=== PATIENT | male | born 1940 | race Caucasian/White ===

== ENCOUNTER 2021-03-15 18:35 | Inpatient (IN) | payer OTHER ==
[~2021-03-15] VITALS: Ht 172.7 cm; Wt 79.3 kg
[~2021-03-15 18:35] MED LIST: ALBUAER3 IN; ASCO10003 PO; AZIT500T66 PO; CHOL1CAP47 PO; GABA100C9 PO; LEV50T PO; ZINC220T6 PO
[2021-03-15 21:14] LABS: Basophils # (auto) 0 10 ^3/uL (0-0.2); Basophils % (auto) 0.7 % (0.0-2.0); Eosinophils # (auto) 0 10 ^3/uL (0-0.8); Eosinophils % (auto) 0.1 % (0.0-7.0); Hematocrit 37.6 % (41.0-53.0); Hemoglobin 13.1 g/dL (13.5-17.5); Lymphocytes # (auto) 0.3 10 ^3/uL (0.4-5.4); Lymphocytes % (auto) 8.2 % (10.0-50.0); Mean Corpuscular Hemoglobin 30.8 pg (28.0-32.0); Mean Corpuscular Hgb Conc. 34.8 g/dL (32.0-36.0); Mean Corpuscular Volume 88.6 fL (80.0-100.0); Monocytes # (auto) 0.6 10 ^3/uL (0-1.3); Monocytes % (auto) 14.3 % (0.0-12.0); Neutrophils # (auto) 3.1 10 ^3/uL (1.6-8.6); Neutrophils % (auto) 76.7 % (37.0-80.0); Nucleated Red Blood Cells % 0.2 %; Red Blood Cells 4.24 10^6/uL (4.5-5.90); Red Cell Distribution Width 13.7 % (11.8-14.3); White Blood Cell 4.1 10^3/uL (4.4-10.8)
[2021-03-15 21:15] LABS: INR 0.99 (0.9-1.15); Partial Thromboplastin Time 33.7 sec (23.0-31.2)
[2021-03-15] MEDS ORDERED: ACETAMINOPHEN 325 MG TAB PO ONE (21:15)
[2021-03-15 21:17] LABS: Calcium 7.5 mg/dL (8.5-10.1); Potassium 4.1 mmol/L (3.5-5.1)
[2021-03-15 21:19] LABS: Urine Bacteria NONE SEEN /hpf (None Seen); Urine Blood Negative /uL (Negative); Urine Specific Gravity 1.017 (1.001-1.035); Urine WBC 1 /hpf (0 - 3)
[2021-03-15] MEDS ORDERED: PIPERACILLIN-TAZO 4.5GM 100 ML IV ONE (23:15)
[2021-03-16] MEDS ORDERED: MORPHINE SULFATE INJECTION 2 MG/ML SYRG IV PRN (02:30)
[2021-03-16] MEDS ORDERED: NITROGLYCERIN 0.4 MG SL TAB SL PRN (02:30)
[2021-03-16] MEDS ORDERED: ONDANSETRON HCL 4 MG/2 ML VIAL IV PRN (02:30)
[2021-03-16] MEDS ORDERED: ACETAMINOPHEN 500 MG TAB PO PRN (02:30)
[2021-03-16] MEDS ORDERED: HYDROcodone-ACET 5/325MG TAB PO PRN (02:30)
[2021-03-16] MEDS ORDERED: DOCUSATE SOD 100 MG CAP PO PRN (02:30)
[2021-03-16 02:51] VITALS: BP 97/55
[2021-03-16] MEDS: SODIUM CHLORIDE 0.9% 1,000 ML IV SCH ×2 (03:04→19:10)
[2021-03-16] MEDS: SODIUM CHLOR 0.9% PF (SALINE LOCK) 10ML VIAL/SYR IV SCH ×3 (05:51→21:45)
[2021-03-16 06:28] VITALS: BP 125/49
[2021-03-16] MEDS: LEVOTHYROXINE SODIUM 50 MCG TAB PO SCH (06:31)
[2021-03-16 08:38] LABS: Albumin 2.8 g/dL (3.4-5.0); BUN/Creatinine Ratio 21.4; Potassium 3.8 mmol/L (3.5-5.1)
[2021-03-16 08:45] LABS: Basophils # (auto) 0 10 ^3/uL (0-0.2); Basophils % (auto) 0.5 % (0.0-2.0); Eosinophils # (auto) 0 10 ^3/uL (0-0.8); Eosinophils % (auto) 0.3 % (0.0-7.0); Hematocrit 40.4 % (41.0-53.0); Hemoglobin 13.9 g/dL (13.5-17.5); Mean Corpuscular Hemoglobin 30.3 pg (28.0-32.0); Mean Corpuscular Hgb Conc. 34.4 g/dL (32.0-36.0); Neutrophils # (auto) 1.7 10 ^3/uL (1.6-8.6); Nucleated Red Blood Cells % 0.6 %; Red Blood Cells 4.59 10^6/uL (4.5-5.90); Red Cell Distribution Width 14.1 % (11.8-14.3)
[2021-03-16 08:46] LABS: Bilirubin, Total 0.6 mg/dL (0.2-1.0); Total Protein 6.2 g/dL (6.4-8.2)
[2021-03-16 08:49] LABS: Lymphocytes # (auto) 0.8 10 ^3/uL (0.4-5.4); Lymphocytes % (auto) 24.2 % (10.0-50.0); Monocytes # (auto) 0.6 10 ^3/uL (0-1.3)
[2021-03-16] MEDS: BUDESONIDE (INHALATION) 180 MCG IH IN SCH ×2 (10:00→22:00)
[2021-03-16] MEDS: ZINC SULFATE 220mg CAP or TAB PO SCH (11:53)
[2021-03-16] MEDS: MULTIPLE VITAMIN TAB PO SCH (11:53)
[2021-03-16] MEDS: CHOLECALCIFEROL (VITD3) 2,000 UNIT CAP/TAB PO SCH (11:53)
[2021-03-16] MEDS: ASCORBIC ACID 1,000 MG TAB PO SCH (11:53)
[2021-03-16] MEDS: DOXYCYCLINE 100MG/250ML 250 ML IV SCH ×2 (11:54→21:46)
[2021-03-16] MEDS: FAMOTIDINE 20 MG TAB PO SCH ×2 (11:54→21:46)
[2021-03-16] MEDS: DexAMETHasone SOD PHOS 10MG/1ML VIAL INJ IV SCH (11:55)
[2021-03-16] MEDS: ENOXAPARIN SOD 40 MG/0.4 ML SYRINGE SC SCH (11:55)
[2021-03-16] MEDS ORDERED: REMDESIVIR 200 MG in NS 210ml LOADING DOSE ADULT IV ONE (15:30)
[2021-03-16] MEDS ORDERED: REMDESIVIR PER PHARMACY 0 ML IV SCH (15:30)
[2021-03-16 21:03] VITALS: BP 122/68
[2021-03-17 05:25] VITALS: BP 121/60
[2021-03-17] MEDS: SODIUM CHLOR 0.9% PF (SALINE LOCK) 10ML VIAL/SYR IV SCH ×3 (05:48→21:59)
[2021-03-17] MEDS: LEVOTHYROXINE SODIUM 50 MCG TAB PO SCH (06:17)
[2021-03-17 07:51] LABS: Albumin 2.6 g/dL (3.4-5.0); Potassium 4.1 mmol/L (3.5-5.1)
[2021-03-17 07:54] LABS: Bilirubin, Total 0.5 mg/dL (0.2-1.0); Total Protein 5.9 g/dL (6.4-8.2)
[2021-03-17 08:49] VITALS: BP 114/53
[2021-03-17] MEDS: ASCORBIC ACID 1,000 MG TAB PO SCH (09:43)
[2021-03-17] MEDS: MULTIPLE VITAMIN TAB PO SCH (09:43)
[2021-03-17] MEDS: FAMOTIDINE 20 MG TAB PO SCH ×2 (09:43→21:59)
[2021-03-17] MEDS: DOXYCYCLINE 100MG/250ML 250 ML IV SCH ×2 (09:43→21:59)
[2021-03-17] MEDS: DexAMETHasone SOD PHOS 10MG/1ML VIAL INJ IV SCH (09:43)
[2021-03-17] MEDS: ZINC SULFATE 220mg CAP or TAB PO SCH (09:43)
[2021-03-17] MEDS: CHOLECALCIFEROL (VITD3) 2,000 UNIT CAP/TAB PO SCH (09:44)
[2021-03-17] MEDS: ENOXAPARIN SOD 40 MG/0.4 ML SYRINGE SC SCH (09:44)
[2021-03-17] MEDS: ALBUTEROL SULF HFA 90MCG INH 200DOSE IN PRN ×2 (09:52→19:02)
[2021-03-17] MEDS: BUDESONIDE (INHALATION) 180 MCG IH IN SCH ×2 (09:53→19:02)
[2021-03-17] MEDS: SODIUM CHLORIDE 0.9% 1,000 ML IV SCH (11:55)
[2021-03-17] MEDS ORDERED: IOHEXOL 350 MG/ML 100ML IJ ONE (12:00)
[2021-03-17 12:50] VITALS: BP 122/74
[2021-03-17] MEDS: REMDESIVIR 100mg 100 MG in SODIUM CHL 0.9% 230 ML IV SCH (15:52)
[2021-03-17 17:00] VITALS: BP 134/80
[2021-03-18 00:30] VITALS: BP 121/71
[2021-03-18] MEDS: SODIUM CHLORIDE 0.9% 1,000 ML IV SCH (04:30)
[2021-03-18 06:00] VITALS: BP 123/60
[2021-03-18] MEDS: SODIUM CHLOR 0.9% PF (SALINE LOCK) 10ML VIAL/SYR IV SCH ×3 (06:17→23:18)
[2021-03-18] MEDS: LEVOTHYROXINE SODIUM 50 MCG TAB PO SCH (06:18)
[2021-03-18 07:09] LABS: Albumin 2.8 g/dL (3.4-5.0); BUN/Creatinine Ratio 21.2; Calcium 8.3 mg/dL (8.5-10.1)
[2021-03-18 07:12] LABS: Bilirubin, Total 0.6 mg/dL (0.2-1.0); Total Protein 6.4 g/dL (6.4-8.2)
[2021-03-18] MEDS: ALBUTEROL SULF HFA 90MCG INH 200DOSE IN PRN (07:54)
[2021-03-18] MEDS: BUDESONIDE (INHALATION) 180 MCG IH IN SCH ×2 (07:55→23:20)
[2021-03-18] MEDS: MULTIPLE VITAMIN TAB PO SCH (09:01)
[2021-03-18] MEDS: FAMOTIDINE 20 MG TAB PO SCH ×2 (09:01→23:18)
[2021-03-18] MEDS: ASCORBIC ACID 1,000 MG TAB PO SCH (09:01)
[2021-03-18] MEDS: DexAMETHasone SOD PHOS 10MG/1ML VIAL INJ IV SCH (09:01)
[2021-03-18] MEDS: ZINC SULFATE 220mg CAP or TAB PO SCH (09:01)
[2021-03-18] MEDS: DOXYCYCLINE 100MG/250ML 250 ML IV SCH ×2 (09:01→23:18)
[2021-03-18] MEDS: CHOLECALCIFEROL (VITD3) 2,000 UNIT CAP/TAB PO SCH (09:01)
[2021-03-18] MEDS: ENOXAPARIN SOD 40 MG/0.4 ML SYRINGE SC SCH (09:02)
[2021-03-18] MEDS: REMDESIVIR 100mg 100 MG in SODIUM CHL 0.9% 230 ML IV SCH (13:56)
[2021-03-18 14:00] VITALS: BP 113/68
[2021-03-18] MEDS ORDERED: TEMAZEPAM 15 MG CAP PO PRN (17:15)
[2021-03-18 17:18] VITALS: BP 120/69
[2021-03-18 22:25] VITALS: BP 140/70
[2021-03-18] MEDS: TEMAZEPAM 15 MG CAP PO PRN (23:18)
[2021-03-19 05:09] VITALS: BP 120/62
[2021-03-19 05:33] VITALS: BP 120/62
[2021-03-19] MEDS: SODIUM CHLORIDE 0.9% 1,000 ML IV SCH ×2 (06:08→10:55)
[2021-03-19] MEDS: SODIUM CHLOR 0.9% PF (SALINE LOCK) 10ML VIAL/SYR IV SCH ×3 (06:08→21:18)
[2021-03-19] MEDS: LEVOTHYROXINE SODIUM 50 MCG TAB PO SCH (06:08)
[2021-03-19 07:08] LABS: Hematocrit 37.8 % (41.0-53.0); Hemoglobin 13.4 g/dL (13.5-17.5); Mean Corpuscular Hemoglobin 31.2 pg (28.0-32.0); Mean Corpuscular Hgb Conc. 35.6 g/dL (32.0-36.0); Mean Corpuscular Volume 87.6 fL (80.0-100.0); Red Blood Cells 4.31 10^6/uL (4.5-5.90); Red Cell Distribution Width 14.2 % (11.8-14.3); White Blood Cell 4.8 10^3/uL (4.4-10.8)
[2021-03-19 07:20] LABS: Basophils % (manual) 0 (0.0-2.0); Blast Cells 0; Eosinophils % (manual) 0 (0-7); Metamyelocytes % 0; Myelocytes % 0; Promyelocytes % 0; Reactive Lymphocytes 0
[2021-03-19 07:25] LABS: Potassium 4.2 mmol/L (3.5-5.1)
[2021-03-19 07:36] LABS: Albumin 2.6 g/dL (3.4-5.0); BUN/Creatinine Ratio 27.5; Bilirubin, Total 0.6 mg/dL (0.2-1.0); Calcium 8.3 mg/dL (8.5-10.1); Total Protein 5.8 g/dL (6.4-8.2)
[2021-03-19 07:58] LABS: Band Neutrophils % (manual) 1; Lymphocytes % (manual) 14 (10.0-50.0); Monocytes % (manual) 11 (0-12)
[2021-03-19 09:00] VITALS: BP 98/56
[2021-03-19] MEDS: ALBUTEROL SULF HFA 90MCG INH 200DOSE IN PRN (09:40)
[2021-03-19] MEDS: BUDESONIDE (INHALATION) 180 MCG IH IN SCH ×2 (09:42→18:56)
[2021-03-19] MEDS: CHOLECALCIFEROL (VITD3) 2,000 UNIT CAP/TAB PO SCH (10:53)
[2021-03-19] MEDS: ENOXAPARIN SOD 40 MG/0.4 ML SYRINGE SC SCH (10:53)
[2021-03-19] MEDS: ZINC SULFATE 220mg CAP or TAB PO SCH (10:53)
[2021-03-19] MEDS: DexAMETHasone SOD PHOS 10MG/1ML VIAL INJ IV SCH (10:54)
[2021-03-19] MEDS: MULTIPLE VITAMIN TAB PO SCH (10:54)
[2021-03-19] MEDS: ASCORBIC ACID 1,000 MG TAB PO SCH (10:54)
[2021-03-19] MEDS: FAMOTIDINE 20 MG TAB PO SCH ×2 (10:54→21:18)
[2021-03-19] MEDS: DOXYCYCLINE 100MG/250ML 250 ML IV SCH ×2 (10:55→21:17)
[2021-03-19 13:00] VITALS: BP 103/61
[2021-03-19] MEDS: REMDESIVIR 100mg 100 MG in SODIUM CHL 0.9% 230 ML IV SCH (16:19)
[2021-03-19 17:00] VITALS: BP 134/86
[2021-03-19] MEDS: TEMAZEPAM 15 MG CAP PO PRN (21:17)
[2021-03-19 22:00] VITALS: BP 120/65
[2021-03-20] MEDS: SODIUM CHLORIDE 0.9% 1,000 ML IV SCH (03:50)
[2021-03-20 05:01] VITALS: BP 129/72
[2021-03-20] MEDS: SODIUM CHLOR 0.9% PF (SALINE LOCK) 10ML VIAL/SYR IV SCH ×2 (06:00→14:25)
[2021-03-20 06:13] LABS: Hematocrit 38.5 % (41.0-53.0); Hemoglobin 13.6 g/dL (13.5-17.5); Mean Corpuscular Hemoglobin 30.8 pg (28.0-32.0); Mean Corpuscular Hgb Conc. 35.3 g/dL (32.0-36.0); Mean Corpuscular Volume 87.3 fL (80.0-100.0); Red Blood Cells 4.41 10^6/uL (4.5-5.90); Red Cell Distribution Width 14.2 % (11.8-14.3); White Blood Cell 4.4 10^3/uL (4.4-10.8)
[2021-03-20 06:22] LABS: Basophils % (manual) 0 (0.0-2.0); Blast Cells 0; Eosinophils % (manual) 0 (0-7); Metamyelocytes % 0; Myelocytes % 0; Promyelocytes % 0; Reactive Lymphocytes 0
[2021-03-20 06:27] LABS: Albumin 2.5 g/dL (3.4-5.0); Calcium 7.9 mg/dL (8.5-10.1)
[2021-03-20 06:31] LABS: BUN/Creatinine Ratio 29.5; Bilirubin, Total 0.7 mg/dL (0.2-1.0); Total Protein 5.6 g/dL (6.4-8.2)
[2021-03-20] MEDS: LEVOTHYROXINE SODIUM 50 MCG TAB PO SCH (06:56)
[2021-03-20 07:43] LABS: Band Neutrophils % (manual) 2; Lymphocytes % (manual) 16 (10.0-50.0); Monocytes % (manual) 10 (0-12)
[2021-03-20] MEDS: BUDESONIDE (INHALATION) 180 MCG IH IN SCH (09:27)
[2021-03-20] MEDS: ALBUTEROL SULF HFA 90MCG INH 200DOSE IN PRN (09:27)
[2021-03-20] MEDS: FAMOTIDINE 20 MG TAB PO SCH (10:03)
[2021-03-20] MEDS: ZINC SULFATE 220mg CAP or TAB PO SCH (10:03)
[2021-03-20] MEDS: ASCORBIC ACID 1,000 MG TAB PO SCH (10:03)
[2021-03-20] MEDS: MULTIPLE VITAMIN TAB PO SCH (10:03)
[2021-03-20] MEDS: CHOLECALCIFEROL (VITD3) 2,000 UNIT CAP/TAB PO SCH (10:03)
[2021-03-20] MEDS: ENOXAPARIN SOD 40 MG/0.4 ML SYRINGE SC SCH (10:04)
[2021-03-20] MEDS: DOXYCYCLINE 100MG/250ML 250 ML IV SCH (10:07)
[2021-03-20] MEDS: DexAMETHasone SOD PHOS 10MG/1ML VIAL INJ IV SCH (10:07)
[2021-03-20] MEDS ORDERED: Glucerna Carbsteady SHAKE Vanilla 8oz PO SCH (12:00)
[2021-03-20] MEDS: REMDESIVIR 100mg 100 MG in SODIUM CHL 0.9% 230 ML IV SCH (16:33)
[2021-03-20 17:01] VITALS: BP 138/72
== END 2021-03-20 19:07 | disposition home health service (06) | DRG 871 ==
LOC: ER 18:35 → EAST 03-16 02:16 → ER 03-16 08:26 → TELE-EAST 03-16 11:24
PROVIDERS: ADMIT Nurse Practitioner Family; ATTEND Internal Medicine
PROC: XW033E5 Introduction of Remdesivir Anti-infective into Peripheral Vein, Percutaneous Approach, New Technology Group 5 (ICD-10-PCS; principal; 2021-03-16)
DX: A41.89 Other specified sepsis (principal); U07.1 COVID-19; J12.82 Pneumonia due to coronavirus disease 2019; J96.01 Acute respiratory failure with hypoxia; G93.41 Metabolic encephalopathy; E87.1 Hypo-osmolality and hyponatremia; J98.11 Atelectasis; J44.0 Chronic obstructive pulmonary disease with (acute) lower respiratory infection; I10 Essential (primary) hypertension; M06.9 Rheumatoid arthritis, unspecified; E03.9 Hypothyroidism, unspecified; E88.09 Other disorders of plasma-protein metabolism, not elsewhere classified; Z78.9 Other specified health status; Z82.49 Family history of ischemic heart disease and other diseases of the circulatory system; Z79.899 Other long term (current) drug therapy; M19.90 Unspecified osteoarthritis, unspecified site
CPT/HCPCS: 36415; 36600; 70450; 71045; 71275; 80048; 80053; 81001; 82306; 82805; 83036; 83605; 83735; 84443; 85007; 85025; 85027; 85379; 85610; 85730; 87040; 87081; 87426; 93005; 93970; 94640; 96365; 96366; G0378; J1100; J2543; J3490

== ENCOUNTER 2021-12-18 18:00 | Inpatient (IN) | payer OTHER ==
[~2021-12-18] VITALS: Ht 177.8 cm; Wt 91.4 kg
[~2021-12-18 18:00] MED LIST changes: -AZIT500T66 PO
[2021-12-18 20:09] LABS: Basophils # (auto) 0.1 10 ^3/uL (0-0.2); Basophils % (auto) 0.7 % (0.0-2.0); Eosinophils # (auto) 0 10 ^3/uL (0-0.8); Hematocrit 37.1 % (41.0-53.0); Hemoglobin 12.7 g/dL (13.5-17.5); Lymphocytes # (auto) 0.8 10 ^3/uL (0.4-5.4); Mean Corpuscular Hemoglobin 30.9 pg (28.0-32.0); Mean Corpuscular Hgb Conc. 34.3 g/dL (32.0-36.0); Mean Corpuscular Volume 90.1 fL (80.0-100.0); Monocytes # (auto) 0.7 10 ^3/uL (0-1.3); Monocytes % (auto) 9.1 % (0.0-12.0); Neutrophils # (auto) 6.2 10 ^3/uL (1.6-8.6); Neutrophils % (auto) 80.2 % (37.0-80.0); Red Blood Cells 4.11 10^6/uL (4.5-5.90); Red Cell Distribution Width 13.9 % (11.8-14.3); White Blood Cell 7.7 10^3/uL (4.4-10.8)
[2021-12-18 20:26] LABS: Albumin 3.2 g/dL (3.4-5.0); Calcium 8.8 mg/dL (8.5-10.1); Potassium 4.1 mmol/L (3.5-5.1)
[2021-12-18 20:32] LABS: BUN/Creatinine Ratio 15.9; Bilirubin, Total 0.4 mg/dL (0.2-1.0)
[2021-12-18] MEDS ORDERED: AZITHROMYCIN 250 MG TAB PO ONE (21:45)
[2021-12-18] MEDS ORDERED: cefTRIAXone SOD 1,000 MG VL IV ONE (21:45)
[2021-12-18] MEDS ORDERED: ALBUTEROL SULF 2.5 MG/0.5ML(0.5%) NEB SOLN NEB PRN (22:00)
[2021-12-18] MEDS ORDERED: ACETAMINOPHEN 325 MG TAB PO PRN (22:00)
[2021-12-18] MEDS ORDERED: DexAMETHasone SOD PHOS 10MG/1ML VIAL INJ IV ONE (22:00)
[2021-12-18] MEDS ORDERED: ONDANSETRON HCL 4 MG/2 ML VIAL IV PRN (22:00)
[2021-12-18] MEDS ORDERED: MORPHINE SULFATE INJECTION 2 MG/ML SYRG IV PRN (22:00)
[2021-12-18] MEDS ORDERED: NITROGLYCERIN 0.4 MG SL TAB SL PRN (22:00)
[2021-12-18] MEDS: GABAPENTIN 100 MG CAP PO SCH (22:58)
[2021-12-19] VITALS (7 sets, daily range): BP systolic 113–150; BP diastolic 62–79
[2021-12-19 05:38] LABS: Basophils # (auto) 0 10 ^3/uL (0-0.2); Basophils % (auto) 0.3 % (0.0-2.0); Eosinophils # (auto) 0 10 ^3/uL (0-0.8); Hematocrit 36.9 % (41.0-53.0); Hemoglobin 12.8 g/dL (13.5-17.5); Lymphocytes # (auto) 0.6 10 ^3/uL (0.4-5.4); Lymphocytes % (auto) 9.5 % (10.0-50.0); Mean Corpuscular Hemoglobin 30.9 pg (28.0-32.0); Mean Corpuscular Hgb Conc. 34.7 g/dL (32.0-36.0); Mean Corpuscular Volume 89.2 fL (80.0-100.0); Monocytes # (auto) 0.3 10 ^3/uL (0-1.3); Monocytes % (auto) 4.4 % (0.0-12.0); Neutrophils # (auto) 5.3 10 ^3/uL (1.6-8.6); Neutrophils % (auto) 85.8 % (37.0-80.0); Nucleated Red Blood Cells % 0.1 %; Red Blood Cells 4.13 10^6/uL (4.5-5.90); Red Cell Distribution Width 14.2 % (11.8-14.3); White Blood Cell 6.1 10^3/uL (4.4-10.8)
[2021-12-19 05:55] LABS: BUN/Creatinine Ratio 16.2; Calcium 8.8 mg/dL (8.5-10.1); Potassium 4.2 mmol/L (3.5-5.1)
[2021-12-19] MEDS ORDERED: LEVOTHYROXINE SODIUM 100 MCG TAB PO SCH (07:00)
[2021-12-19] MEDS ORDERED: LEV100T PO (07:02)
[2021-12-19] MEDS ORDERED: BACL10TA PO (07:13)
[2021-12-19] MEDS ORDERED: DOXE75CA20 PO (07:13)
[2021-12-19] MEDS ORDERED: TAM04C PO (07:13)
[2021-12-19] MEDS ORDERED: OMEP20TA PO (07:13)
[2021-12-19] MEDS ORDERED: METH2.5T PO (07:14)
[2021-12-19] MEDS ORDERED: cefTRIAXone 1GM/50ML D5W 50 ML IV SCH (09:00)
[2021-12-19] MEDS ORDERED: ENOXAPARIN SOD 40 MG/0.4 ML SYRINGE SC SCH (10:00)
[2021-12-19] MEDS ORDERED: DexAMETHasone SOD PHOS 10MG/1ML VIAL INJ IV SCH (10:00)
[2021-12-19] MEDS ORDERED: PANTOPRAZOLE 40 MG TAB PO SCH (10:00)
[2021-12-19] MEDS ORDERED: AZITHROMYCIN 500MG/ 250ML 250 ML IV SCH (10:00)
[2021-12-19] MEDS: GABAPENTIN 100 MG CAP PO SCH (10:02)
[2021-12-19] MEDS ORDERED: DOXY-346 PO (13:01)
== END 2021-12-19 17:40 | disposition home health service (06) | DRG 189 ==
LOC: ER 18:00 → TELE 21:55 → TELE-EAST 23:30
PROVIDERS: ADMIT Nurse Practitioner; ATTEND Internal Medicine
DX: J96.21 Acute and chronic respiratory failure with hypoxia (principal); E87.1 Hypo-osmolality and hyponatremia; E44.0 Moderate protein-calorie malnutrition; E03.9 Hypothyroidism, unspecified; K21.9 Gastro-esophageal reflux disease without esophagitis; M19.90 Unspecified osteoarthritis, unspecified site; Z20.822 Contact with and (suspected) exposure to COVID-19; N40.0 Benign prostatic hyperplasia without lower urinary tract symptoms; Z82.49 Family history of ischemic heart disease and other diseases of the circulatory system; Z68.28 Body mass index [BMI] 28.0-28.9, adult; Z86.16 Personal history of COVID-19
CPT/HCPCS: 36415; 36600; 71045; 80048; 80053; 82728; 82805; 83605; 83880; 84484; 85025; 93005; 96374; 96375; G0378; J0696; J1100

== ENCOUNTER 2024-02-04 09:38 | Inpatient (IN) | payer OTHER, MEDICAID ==
[~2024-02-04] VITALS: Ht 177.8 cm; Wt 76.4 kg
[~2024-02-04 09:38] MED LIST changes: -ASCO10003 PO; +BACL10TA PO; -CHOL1CAP47 PO; +DOXE75CA20 PO; +DOXY-346 PO; +GABA-1308 PO; -GABA100C9 PO; +LEV100T PO; -LEV50T PO; +METH2.5T PO; +OMEP20TA PO; +TAMS-35 PO; -ZINC220T6 PO
[2024-02-04 10:39] LABS: Urine Bacteria None Seen /hpf (None Seen)
[2024-02-04 10:52] LABS: Urine Blood Negative /uL (Negative); Urine Clarity Clear (Clear); Urine Color Colorless (Yellow); Urine Protein, UAD Negative (Negative); Urine Specific Gravity 1.005 (1.001-1.035); Urine Urobilinogen Normal (Negative); Urine WBC <1 /hpf (0 - 3); Urine pH 6.5 (5.0-9.0)
[2024-02-04 10:53] LABS: Basophils # (auto) 0 10 ^3/uL (0-0.2); Basophils % (auto) 0.4 % (0.0-2.0); Eosinophils # (auto) 0.1 10 ^3/uL (0-0.8); Hematocrit 42.3 % (41.0-53.0); Hemoglobin 13.9 g/dL (13.5-17.5); Lymphocytes # (auto) 2.3 10 ^3/uL (0.4-5.4); Lymphocytes % (auto) 27.6 % (10.0-50.0); Mean Corpuscular Hemoglobin 30.7 pg (28.0-32.0); Monocytes # (auto) 0.8 10 ^3/uL (0-1.3); Monocytes % (auto) 10.2 % (0.0-12.0); Neutrophils % (auto) 60.8 % (37.0-80.0); Nucleated Red Blood Cells % 0.1 %; Red Blood Cells 4.54 10^6/uL (4.5-5.90); Red Cell Distribution Width 14.9 % (11.8-14.3); White Blood Cell 8.3 10^3/uL (4.4-10.8)
[2024-02-04 11:17] LABS: Alanine Aminotransferase 22 U/L (7-40); Alkaline Phosphatase 50 U/L (46-116); Anion Gap 4 (5-15); BUN/Creatinine Ratio 15.3 (10.0-20.0); Blood Urea Nitrogen 13 mg/dL (9-23); Carbon Dioxide 29 mmol/L (20-30); Chloride 104 mmol/L (98-107); Glucose 92 mg/dL (74-106); Potassium 4.6 mmol/L (3.5-5.1); Sodium 137 mmol/L (136-145)
[2024-02-04 11:18] LABS: Albumin 4.3 g/dL (3.2-4.8); Aspartate Aminotransferase 29 U/L (13-40); Bilirubin, Total 0.3 mg/dL (0.2-1.0); Total Protein 6.7 g/dL (5.7-8.2)
[2024-02-04 12:37] LABS: Lipase 46 U/L (12-53)
[2024-02-04] MEDS: IOHEXOL 300 MG/ML 100ML BOTTLE IJ ONE (15:29)
[2024-02-04] MEDS ORDERED: MORPHINE SULFATE INJ 2 MG/ml SYRG IV PRN ×2 (22:00)
[2024-02-04] MEDS ORDERED: ONDANSETRON HCL 4 MG/2 ML VIAL IV PRN (22:00)
[2024-02-04] MEDS ORDERED: NITROGLYCERIN 0.4 MG SL TAB SL PRN (22:00)
[2024-02-05] MEDS: SODIUM CHLORIDE 0.9% 1,000 ML IV SCH (00:21)
[2024-02-05] MEDS: hydrOXYzine 25 MG TAB or CAP PO PRN (00:49)
[2024-02-05] MEDS: HALOPERIDOL LACTATE 5 MG/ML INJ VIAL IM PRN (04:52)
[2024-02-05] MEDS: HALOPERIDOL LACTATE 5 MG/ML INJ VIAL ONE (05:09)
[2024-02-05 07:44] VITALS: BP 168/86; PULSE 78; RESP 18; TEMP 76.2; O2SAT 92
[2024-02-05 07:57] VITALS: BP 168/86; PULSE 78; RESP 18; TEMP 97.4
[2024-02-05 09:00] VITALS: BP 163/91; PULSE 80; RESP 18; TEMP 98; O2SAT 94
[2024-02-05] MEDS: PANTOPRAZOLE 40 MG/10 ML VIAL INJ IV SCH (09:01)
[2024-02-05] MEDS: ENOXAPARIN SOD 40 MG/0.4 ML SYRINGE SC SCH (09:08)
[2024-02-05 10:04] LABS: Basophils # (auto) 0 10 ^3/uL (0-0.2); Basophils % (auto) 0.5 % (0.0-2.0); Eosinophils # (auto) 0.1 10 ^3/uL (0-0.8); Eosinophils % (auto) 0.6 % (0.0-7.0); Hematocrit 44.1 % (41.0-53.0); Hemoglobin 14.4 g/dL (13.5-17.5); Lymphocytes # (auto) 1.4 10 ^3/uL (0.4-5.4); Lymphocytes % (auto) 16.5 % (10.0-50.0); Mean Corpuscular Hemoglobin 30.4 pg (28.0-32.0); Mean Corpuscular Hgb Conc. 32.6 g/dL (32.0-36.0); Mean Corpuscular Volume 93.3 fL (80.0-100.0); Monocytes # (auto) 0.8 10 ^3/uL (0-1.3); Monocytes % (auto) 9.7 % (0.0-12.0); Neutrophils # (auto) 6.4 10 ^3/uL (1.6-8.6); Neutrophils % (auto) 72.7 % (37.0-80.0); Nucleated Red Blood Cells % 0.1 %; Red Blood Cells 4.72 10^6/uL (4.5-5.90); Red Cell Distribution Width 14.4 % (11.8-14.3); White Blood Cell 8.7 10^3/uL (4.4-10.8)
[2024-02-05 10:27] LABS: Chloride 107 mmol/L (98-107); Sodium 140 mmol/L (136-145)
[2024-02-05 10:28] LABS: Anion Gap 6 (5-15); Carbon Dioxide 27 mmol/L (20-30)
[2024-02-05 10:29] LABS: Calcium 9.9 mg/dL (8.5-10.1)
[2024-02-05 10:34] LABS: BUN/Creatinine Ratio 12.5 (10.0-20.0); Blood Urea Nitrogen 9 mg/dL (9-23); Glucose 105 mg/dL (74-106)
[2024-02-05 13:00] VITALS: BP 141/71; PULSE 72; RESP 18; TEMP 97.4; O2SAT 96
[2024-02-05] MEDS: TAMSULOSIN HYDROCHLORIDE 0.4 MG CAP PO SCH (13:56)
[2024-02-05] MEDS ORDERED: FOLI-119 PO (16:50)
[2024-02-05] MEDS ORDERED: SENN-58 PO (16:50)
[2024-02-05 17:00] VITALS: BP 146/71; PULSE 73; RESP 17; TEMP 98; O2SAT 96
[2024-02-05 21:00] VITALS: BP 128/79; PULSE 94; RESP 20; TEMP 98.4; O2SAT 98
[2024-02-05] MEDS: DOXEPIN 75 MG PO SCH (22:00)
[2024-02-06] MEDS: diphenhdrAMINE HCL 50 MG/1 ML VL IV ONE ×2 (01:14→01:18)
[2024-02-06] MEDS: ACETAMINOPHEN 325 MG TAB PO PRN (06:58)
[2024-02-06 08:00] VITALS: BP 138/75; PULSE 78; RESP 18; TEMP 98.2; O2SAT 95
[2024-02-06 08:42] VITALS: BP 138/75; PULSE 78; RESP 18; TEMP 98.2; O2SAT 95
[2024-02-06 09:28] LABS: Basophils # (auto) 0 10 ^3/uL (0-0.2); Basophils % (auto) 0.3 % (0.0-2.0); Eosinophils # (auto) 0 10 ^3/uL (0-0.8); Eosinophils % (auto) 0.4 % (0.0-7.0); Hematocrit 41.1 % (41.0-53.0); Hemoglobin 13.6 g/dL (13.5-17.5); Lymphocytes # (auto) 1.1 10 ^3/uL (0.4-5.4); Lymphocytes % (auto) 11.1 % (10.0-50.0); Mean Corpuscular Hemoglobin 30.9 pg (28.0-32.0); Mean Corpuscular Hgb Conc. 33.1 g/dL (32.0-36.0); Mean Corpuscular Volume 93.5 fL (80.0-100.0); Monocytes # (auto) 0.9 10 ^3/uL (0-1.3); Monocytes % (auto) 8.4 % (0.0-12.0); Neutrophils # (auto) 8.2 10 ^3/uL (1.6-8.6); Neutrophils % (auto) 79.8 % (37.0-80.0); Nucleated Red Blood Cells % 0.1 %; Red Cell Distribution Width 14.6 % (11.8-14.3); White Blood Cell 10.2 10^3/uL (4.4-10.8)
[2024-02-06 09:43] LABS: Chloride 103 mmol/L (98-107)
[2024-02-06 09:44] LABS: Anion Gap 7 (5-15); Carbon Dioxide 24 mmol/L (20-30)
[2024-02-06 09:45] LABS: Calcium 9.7 mg/dL (8.5-10.1)
[2024-02-06 09:49] LABS: BUN/Creatinine Ratio 12.5 (10.0-20.0); Blood Urea Nitrogen 10 mg/dL (9-23); Glucose 148 mg/dL (74-106)
[2024-02-06] MEDS: LEVOTHYROXINE SODIUM 100 MCG TAB PO SCH (09:58)
[2024-02-06] MEDS: FOLIC ACID 1 MG TAB PO SCH (09:58)
[2024-02-06] MEDS: PANTOPRAZOLE 40 MG TAB PO SCH (10:00)
[2024-02-06] MEDS ORDERED: SENNA 8.6 MG TAB PO PRN (10:00)
[2024-02-06 10:01] LABS: Sodium 134 mmol/L (136-145)
[2024-02-06 12:15] VITALS: BP 134/73; PULSE 71; RESP 18; TEMP 97.7; O2SAT 94
[2024-02-06 17:00] VITALS: BP 144/72; PULSE 63; RESP 18; TEMP 98; O2SAT 93
[2024-02-06] MEDS ORDERED: METHOTREXATE 2.5 MG TAB PO SCH (17:15)
== END 2024-02-06 19:45 | disposition home health service (06) | DRG 395 ==
LOC: ER 09:38 → OVERFLOW 22:12 → CENTRAL 02-05 08:12
PROVIDERS: ADMIT Nurse Practitioner Family; ATTEND Nurse Practitioner Family
DX: K40.20 Bilateral inguinal hernia, without obstruction or gangrene, not specified as recurrent (principal); K42.9 Umbilical hernia without obstruction or gangrene; K21.9 Gastro-esophageal reflux disease without esophagitis; N32.3 Diverticulum of bladder; N21.0 Calculus in bladder; N40.1 Benign prostatic hyperplasia with lower urinary tract symptoms; N28.1 Cyst of kidney, acquired; J84.10 Pulmonary fibrosis, unspecified; F03.90 Unspecified dementia, unspecified severity, without behavioral disturbance, psychotic disturbance, mood disturbance, and anxiety; K59.00 Constipation, unspecified; Z79.899 Other long term (current) drug therapy; Z82.49 Family history of ischemic heart disease and other diseases of the circulatory system
CPT/HCPCS: 36415; 74177; 80048; 80053; 81001; 83605; 83690; 85025; 93005; 93306; 97110; 97116; 97163; C9113; G0378